=== PATIENT | male | born 1995 | race Caucasian/White ===

== ENCOUNTER → 2018-12-19 10:37 | Outpatient (CLI) | payer OTHER, SELFPAY ==
[2018-12-19 12:53] LABS: Rubella IgG 239.2 IU/mL
[2018-12-23 06:08] LABS: QNTFERON TB Mitogen Value > 10.00 IU/mL (.); QNTFERON TB Nil Value 0.03 IU/mL (.); QNTFERON TB1+ Ag Value 0.04 IU/mL (.); QNTFERON TB2+ Ag Value 0.03 IU/mL (.)
[2018-12-23 11:13] LABS: Hep B Surface Antibodies Non Reactive (.); Mumps Antibody,IgG 81.3 AU/mL (Immune >10.9); QNTIFERON TB Positive Criteria Negative (Negative); Rubeola IgG Ab > 300.0 AU/mL (Immune >29.9); V-Zoster IgG (Immunity) 2128 index (Immune >165)
== END ==
PROVIDERS: Family Provider Family Medicine; PCP Family Medicine; Referring Provider Family Medicine; Visit Provider Family Medicine
DX: Z00.00 Encounter for general adult medical examination without abnormal findings (principal)
CPT/HCPCS: 36415; 86480; 86706; 86735; 86762; 86765; 86787

== ENCOUNTER → 2018-12-30 14:59 | Outpatient (CLI) | payer OTHER, SELFPAY ==
--- NOTE | 2018-12-30 15:02 | US_ITS ---
STUDY: SCROTUM ULTRASOUND REASON FOR EXAM: Male, 23 years old. Scrotal lump TECHNIQUE: Ultrasound evaluation of the scrotum was performed with color Doppler and static fraga-scale imaging. COMPARISON: None. FINDINGS: RIGHT TESTICLE INTRATESTICULAR: There is a normal size of the right testicle. The right testicle measures 5.3 x 3.4 x 2.6 cm. There is a homogenous echotexture. There is normal arterial and normal venous vascularity. There is no demonstrated right testicular mass or cyst. EXTRATESTICULAR: The epididymis is normal in size. The epididymis head measures 1.3 cm. There is normal vascularity of the epididymis. There is a well-defined cystic structure within the epididymis, without internal echoes, consistent with an epididymal cyst. There is no demonstrated hydrocele. There is no demonstrated varicocele. There is no demonstrated extratesticular mass or cyst. LEFT TESTICLE INTRATESTICULAR: There is a normal size of the left testicle. The left testicle measures 5.1 x 3.2 x 2.1 cm. There is a homogenous echotexture. There is normal arterial and normal venous vascularity. There is no demonstrated left testicular mass or cyst. EXTRATESTICULAR: The epididymis is normal in size. The epididymis head measures 1.3 cm. There is normal vascularity of the epididymis. There is a well-defined cystic structure within the epididymis, without internal echoes, consistent with an epididymal cyst. There is a small hydrocele. There is no demonstrated varicocele. There is no demonstrated extratesticular mass or cyst. US/Testicular with Arterial Flow IMPRESSION: Unremarkable testicles. Small bilateral epididymal head cysts. Trace left hydrocele. Electronically Signed: Arnoldo Rodas DO at 20:00 EDT Tel , Service support ,
== END ==
PROVIDERS: Family Provider Family Medicine; PCP Family Medicine; Referring Provider Family Medicine; Visit Provider Family Medicine
DX: N50.9 Disorder of male genital organs, unspecified (principal)
CPT/HCPCS: 76870; 93976